=== PATIENT | male | born 1975 | race Caucasian/White ===

== ENCOUNTER 2022-03-26 12:05 | Emergency (ER) | payer OTHER ==
[~2022-03-26] VITALS: Ht 182.9 cm; Wt 158.8 kg
== END 2022-03-26 14:02 | disposition home or self-care (01) ==
LOC: ER 12:05
DX: H66.90 Otitis media, unspecified, unspecified ear (principal)

== ENCOUNTER 2022-03-30 11:14 | Emergency (ER) | payer OTHER ==
[~2022-03-30] VITALS: Ht 182.9 cm; Wt 158.8 kg
[2022-03-30] MEDS ORDERED: KETO10TA2 PO (16:08)
[2022-03-30] MEDS ORDERED: AMOX-CLAV 875-1 EACH PO (16:08)
== END 2022-03-30 17:13 | disposition home or self-care (01) ==
LOC: ER 11:14
DX: H66.91 Otitis media, unspecified, right ear (principal); Z20.822 Contact with and (suspected) exposure to COVID-19

== ENCOUNTER 2022-04-04 12:55 | Emergency (ER) | payer OTHER ==
[~2022-04-04] VITALS: Ht 182.9 cm; Wt 158.8 kg
[~2022-04-04 12:55] MED LIST: AMOX-CLAV 875-1 EACH PO; KETO10TA2 PO
== END 2022-04-04 14:03 | disposition home or self-care (01) ==
LOC: ER 12:55
DX: H66.91 Otitis media, unspecified, right ear (principal); L29.8 Other pruritus

== ENCOUNTER 2023-03-12 21:14 | Emergency (ER) | payer OTHER ==
[~2023-03-12] VITALS: Ht 185.4 cm; Wt 158.8 kg
[2023-03-12] MEDS ORDERED: ZYRTEC10 M3 PO (22:10)
[2023-03-13] LABS: HEMATOCRIT 43.2 % (39.0-48.0); MEAN CELL VOLUME 86.1 fL (80.0-100.00); MEAN CORPUSCULAR HEMOGLOBIN 29.9 pg (27.00-32.0); MEAN CORPUSCULAR HGB CONC 34.8 g/dl (32.0-36.0); PLATELET COUNT 397 K/uL (150-450); RED BLOOD COUNT 5.02 M/uL (4.00-6.00)
[2023-03-13] MEDS ORDERED: MEDROLPACK PO (01:32)
[2023-03-13] MEDS ORDERED: ATARAX25 MG PO (01:32)
== END 2023-03-13 01:48 | disposition home or self-care (01) ==
LOC: ER 21:14
PROVIDERS: General Practice
DX: L50.8 Other urticaria (principal); I10 Essential (primary) hypertension

== ENCOUNTER 2025-03-08 21:12 | Emergency (ER) | payer OTHER ==
[~2025-03-08] VITALS: Ht 182.9 cm; Wt 147.9 kg
[~2025-03-08 21:12] MED LIST changes: +ATARAX25 MG PO; +MEDROLPACK PO; +ZYRTEC10 M3 PO
[2025-03-08] MEDS ORDERED: ARBLI10 MG/1 ML PO (21:22)
[2025-03-08] MEDS ORDERED: KETOROLAC TROMETHAMINE 30 MG VIAL IM STA (22:30)
[2025-03-08] MEDS ORDERED: KETOROLAC TROMETHAMINE 30 MG VIAL ONE (23:31)
[2025-03-08] MEDS ORDERED: KETO10TA2 PO (23:33)
== END 2025-03-09 02:02 | disposition home or self-care (01) ==
LOC: ER 21:13
DX: M25.561 Pain in right knee (principal); W01.0XXA Fall on same level from slipping, tripping and stumbling without subsequent striking against object, initial encounter; Y93.89 Activity, other specified; Y92.89 Other specified places as the place of occurrence of the external cause; E11.9 Type 2 diabetes mellitus without complications

== ENCOUNTER 2025-03-12 10:34 | Outpatient (CLI) | payer OTHER ==
[~2025-03-12 10:34] MED LIST changes: +ARBLI10 MG/1 ML PO
== END 2025-03-12 10:51 | disposition home or self-care (01) ==
LOC: MRI 10:34
DX: M25.561 Pain in right knee (principal); M25.562 Pain in left knee
CPT/HCPCS: 73723